=== PATIENT | female | born 1990 | race Caucasian/White ===

== ENCOUNTER 2017-03-09 13:46 | Day surgery (SDC) | payer OTHER ==
[~2017-03-09] VITALS: Ht 172.7 cm; Wt 95.2 kg
[~2017-03-09 13:46] MED LIST: 0.9% Sodium Chloride 1,000 ML IV SCH; LORA1TAB PO; OXYC1TAB24 PO; POLY17PO6 PO; PREN1TAB73 PO; Sodium Chloride LOK Flush 10 mL Syringe IV PRN; TAMS0.4C98 PO; fentaNYL-PF 50 mCg/mL 2 mL Inj IVPUSH PRN
[2017-03-09 14:56] VITALS: BP 119/76; PULSE 75; RESP 14; O2SAT 98
[2017-03-09] MEDS ORDERED: 0.9% Sodium Chloride 1,000 ML IV ONE (15:48)
--- NOTE | 2017-03-09 16:23 | PCM.ENDCOL ---
Colonoscopy Date of Service: Mar 09, 2017 Physician Neftali Judge MD Pre Procedure Diagnosis: Blood in the stools and abnormal CT scan. Post Procedure Dx & Findings: Hemorrhoids Procedure Colonoscopy PROCEDURE IN DETAIL: Prep adequate Withdrawal time 12 minutes After unremarkable rectal examination the Olympus video colonoscope was inserted patient's anal canal and was advanced to cecum. Landmarks were identified including the ileocecal valve and appendiceal orifice. Scope was withdrawn systematically. Visualized colonic mucosa showed healthy shiny mucosa with normal healthy-appearing vasculature. In the rectum retroflexion was done which showed hemorrhoids. Anal canal was inspected carefully on the way out and hemorrhoids noted. Impression Hemorrhoids Recommendation Repeat colonoscopy 48 years old Presedation Assessment Risks and Benefits Informed consent was obtained from the patient after all risks and benefits including but not limited to drug reaction, infection, pain, bleeding, perforation, as well as alternatives were discussed. Patient monitoring Continuous pulse oximetry, cardiac monitoring, blood pressure monitoring, IV access, and oxygen at 2L per nasal cannula. Periprocedural Fentanyl: Fentanyl 125mcg Incrementally Midazolam: Midazolam 6mg Incrementally Complications There were no periprocedural complications identified. Post Procedure Plan Post Procedure Recommendations 1. Restrict activities today. 2. Resume normal activities in the morning. 3. Resume medications. 4. Patient informed of normal post procedure side effects as bloating, drowsiness, blood streaking in the stool. 5. average risk CRCS. If colon polyps come back as: -Hyperplastic- can repeat colonoscopy in 10 years -Tubular adenoma- repeat colonoscopy in 5 years -Tubulovillous/villous adenoma- repeat colonoscopy in 3 years -If any dysplasia- return to clinic as soon as possible 6. Please don't hesitate to call me with any questions. Neftali Judge MD Mar 09, 2017 16:23
[2017-03-09 16:25] VITALS: BP 108/67; PULSE 72; RESP 15; O2SAT 99
[2017-03-09 16:35] VITALS: BP 114/64; PULSE 72; RESP 15; O2SAT 98
== END 2017-03-09 23:59 | disposition home or self-care (01) ==
LOC: END 13:46
PROVIDERS: ATTEND Internal Medicine
DX: K64.9 Unspecified hemorrhoids (principal); K92.1 Melena; F17.210 Nicotine dependence, cigarettes, uncomplicated
CPT/HCPCS: 45378; G0500; J2250; J3010; J7030